=== PATIENT | male | born 1990 | race African-American/Black ===

== ENCOUNTER 2025-08-19 09:09 | Emergency (ER) | payer OTHER ==
[2025-08-19 09:18] VITALS: BP 138/91; RESP 18; TEMP 98.3; BMI 38.0
[2025-08-19 09:34] VITALS: PULSE 93
[2025-08-19] MEDS ORDERED: IBUPROFEN 600 MG TABLET (FP) PO ONE (10:24)
[2025-08-19] MEDS: IBUPROFEN 600 MG TABLET (FP) PO ONE (10:29)
== END 2025-08-19 10:30 | disposition home or self-care (01) ==
LOC: JER 09:09
DX: M94.0 Chondrocostal junction syndrome [Tietze] (principal)
CPT/HCPCS: 93005; 93010; 99283-25